=== PATIENT | female | born 1975 | race Caucasian/White ===

== ENCOUNTER 2021-01-08 14:50 | Emergency (ER) | payer OTHER ==
[~2021-01-08] VITALS: Ht 165.1 cm; Wt 99.8 kg
== END 2021-01-08 18:30 | disposition home or self-care (01) ==
LOC: ER1 14:50
DX: U07.1 COVID-19 (principal); Z23 Encounter for immunization; E78.5 Hyperlipidemia, unspecified; K21.9 Gastro-esophageal reflux disease without esophagitis; I10 Essential (primary) hypertension; Z90.49 Acquired absence of other specified parts of digestive tract
CPT/HCPCS: 99283; M0245

== ENCOUNTER → 2021-01-19 | Outpatient (CLI) | payer OTHER | LOC: ECHO 01-12 10:00 | DX: R07.9 Chest pain, unspecified (principal); I10 Essential (primary) hypertension | CPT/HCPCS: ECHO; 93306 ==